=== PATIENT | male | born 1940 | race Asian ===

== ENCOUNTER 2016-05-20 12:30 | Outpatient (CLI) | payer MEDICARE, OTHER ==
[~2016-05-20] VITALS: Ht 157.5 cm; Wt 67.3 kg
[2016-05-20 13:57] VITALS: BP 139/70; PULSE 72; RESP 18; Ht 157.5 cm; Wt 67.3 kg
--- NOTE | 2016-05-20 16:15 | CONS ---
[facility] INITIAL OUTPATIENT CONSULTATION NOTE DATE OF CONSULTATION: 05/20/2016 PLACE OF SERVICE: [facility]. ASSESSMENT AND PLAN: A very pleasant and otherwise fairly healthy 76-year-old gentleman with comorbidities of hypertension and hyperlipidemia, as well as benign prostatic hypertrophy, presenting with left inguinal hernia. I have recommended surgical intervention in the form of laparoscopic and possible open herniorrhaphy, likely with mesh. I reviewed the operation in detail as well as the risks, benefits and alternatives, and obtained the patient's and family's consent to do the operation. I answered all the patient's and family's questions to the best of my ability and I believe that they understand and wish to proceed with the following plan. With above assessment, I recommend the followin. Preoperative history and physical. 2. Schedule for an elective laparoscopic, possible open left inguinal hernia repair with possible mesh. Thank you again for allowing us to participate in the care of this very pleasant gentleman and his wonderful family. If there are any questions, please feel free to call me at [phone]. TOTAL VISIT TIME: 45 minutes of which more than half was spent in [id number] discussion with the patient, discussions with his son, as well as coordination of care between multiple physicians and providers. UPDATED CLINICAL SUMMARY: A very pleasant 76-year-old gentleman who is otherwise fairly healthy, presenting with a few week history of left inguinal discomfort that appears to be an inguinal hernia. COMORBIDITIES: 1. Hypertension. 2. Hypercholesterolemia. 3. Benign prostatic hypertrophy. HISTORY OF THE PRESENT ILLNESS: The patient is a very pleasant 76-year-old gentleman with above-mentioned comorbidities whom we were kindly asked to consult regarding management of his left inguinal hernia. He reports 2 to 3- week history of discomfort in the left groin area associated with no nausea or vomiting or bowel obstruction symptoms. He is currently retired and does not do heavy lifting at work. He also does not have any difficulties with his bowel movements and no changes in his bowel or bladder habits. No changes in appetite or his weight. ALLERGIES: NO KNOWN DRUG ALLERGIES. HOME MEDICATIONS: Blood pressure and prostate medication and the patient did not have a list with him and his medical records did not indicate type of medications. SOCIAL HISTORY: The patient lives with his family. He has 4 children including 3 daughters and 1 son and 9 grandchildren. He does not report any smoking, drinking, or intravenous drug use. FAMILY HISTORY: There is no mention of major medical, surgical or oncologic problems in the family. REVIEW OF SYSTEMS: Other than the above-mentioned, there are no other pertinent positives or pertinent negatives in a complete 14-point review of systems. PHYSICAL EXAMINATION: GENERAL: The patient appears to be a very pleasant [place] gentleman from non- descent, appearing stated age or younger, sitting in a chair comfortably and in no acute distress. His BMI has not been listed, but is less than 24. He is wearing upper and lower dentures. VITAL SIGNS: Stable, and he is afebrile. HEENT: Normocephalic and atraumatic. Extraocular muscles and hearing are grossly intact bilaterally and symmetrically. Sclerae are nonicteric. Oral cavity is clear; oral mucosa appeared to be pink and moist. Dentition: fair. NECK: Supple. There is no lymphadenopathy or JVD. There is no submental, submandibular or supraclavicular lymphadenopathy. CHEST: Rises symmetrically with each breath; patient is breathing comfortably. There are no audible wheezes, rales or rhonchi on the gross exam. HEART: Pulse is regular and palpable on the right wrist. Capillary refill was normal. Carotid pulses are palpable bilaterally and symmetrically in the neck. EXTREMITIES: Lower extremities contain no pitting edema around the ankles bilaterally and symmetrically. ABDOMEN: Soft and benign. His left groin shows a bulge that is easily reducible, but it does increase in size with Valsalva maneuver. There appears to be an indirect hernia on the left side. The scrotum and genitals appeared to be normal. The right side appears to be normal. The skin overlying the left inguinal region appears to be pink, warm and there is no erythema. SKIN: Appears to be pink and feels warm to touch. NEUROLOGIC: Awake, alert, and follows commands appropriately. LABORATORY DATA: 02/24/2016, white blood cell count 5.1, platelets 206, albumin 4.3. Liver numbers are normal. Creatinine 0.9, triglycerides 211. IMAGING: None. Dictated By: DENICE ZARATE/SHAKIRA Conf#: [id number] DID#: [id number] CC: RED CURRY MD;*EndCC* MTDD
== END 2016-05-20 17:09 | disposition home or self-care (01) ==
LOC: HPC 12:30
PROVIDERS: ATTEND Transplant Surgery
DX: K40.90 Unilateral inguinal hernia, without obstruction or gangrene, not specified as recurrent (principal); N40.0 Benign prostatic hyperplasia without lower urinary tract symptoms; I10 Essential (primary) hypertension; E78.00 Pure hypercholesterolemia, unspecified
CPT/HCPCS: G0463

== ENCOUNTER 2016-06-04 05:36 | Day surgery (SDC) | payer MEDICARE, OTHER ==
[2016-06-04] VITALS (11 sets, daily range): BP systolic 145–164; BP diastolic 66–87; PULSE 65–88; RESP 10–18; Ht 161.3 cm; Wt 66.6 kg
[~2016-06-04] VITALS: Ht 161.3 cm; Wt 66.6 kg
[~2016-06-04 05:36] MED LIST: BUPIVACAINE 0.25%/EPI (SDV) 30 ML INJ INJ ONE; CEFAZOLIN 2 GM/50 ML (PMX) 50 ML IVPB ONE; D5W-0.45 NACL + KCL 20 MEQ 1,000 ML IV SCH
[2016-06-04] MEDS ORDERED: EPHEDrine SULFATE 50 MG/5 ML SYG ONE (07:00)
[2016-06-04] MEDS ORDERED: CEFAZOLIN 1 GM INJ ONE (07:00)
[2016-06-04] MEDS ORDERED: BUPIVACAINE 0.25%/EPI (SDV) 30 ML INJ ONE (07:01)
[2016-06-04] MEDS ORDERED: PROPOFOL 20 ML ONE (07:22)
[2016-06-04] MEDS ORDERED: LIDOCAINE 1% (MDV) 20 ML INJ ONE (07:22)
[2016-06-04] MEDS ORDERED: FENTAnyl 50 MCG/ML VIAL ONE (07:22)
[2016-06-04] MEDS ORDERED: ROCURONIUM 50 MG INJ ONE (07:22)
--- NOTE | 2016-06-04 07:37 | HPN ---
Date/Time of Note Date/Time of Note DATE: 06/04/16 TIME: 07:37 Interval H&P Admission Note Pt. seen H&P reviewed: No system changes Pt. seen H&P reviewed. No system changes (I attest that I have seen and examined the patient and reviewed the operation in detail, as well as its risks , benefits and alternatives of the operation). I attest that I have seen and examined the patient and reviewed in detail the operation, and its associated risks, benefits and alternative. I have answered all the patient's questions to the best of my ability and the patient wishes to proceed. Please refer to rest of electronic medical record for additional updates. DENICE KRISHNAN M.D. Jun 04, 2016 07:37
[2016-06-04] MEDS ORDERED: LACTATED RINGER'S 1,000 ML IV SCH (08:00)
[2016-06-04] MEDS ORDERED: ONDANSETRON 4 MG INJ ONE (08:08)
[2016-06-04] MEDS ORDERED: ROPIVACAINE 0.2% 20 ML VIAL ONE (08:08)
[2016-06-04] MEDS ORDERED: DEXAMETHASONE 4 MG/ML 1 ML INJ ONE (08:08)
[2016-06-04] MEDS ORDERED: FAMOTIDINE 20 MG INJ ONE (08:08)
[2016-06-04] MEDS ORDERED: ACETAMINOPHEN 1000MG/100ML IV 100 ML ONE (08:29)
[2016-06-04] MEDS ORDERED: GLYCOPYRROLATE 0.4 MG INJ ONE (09:18)
[2016-06-04] MEDS ORDERED: NEOSTIGMINE 3 MG/3 ML SYRINGE ONE (09:18)
--- NOTE | 2016-06-04 09:48 | OPR ---
Date/Time of Note Date/Time of Note DATE: 06/04/16 TIME: 09:47 Operative Report Operative\Procedure Findings [facility] INPATIENT OPERATIVE NOTE PLACE OF SERVICE: [facility] DATE OF SURGERY: 06/04/2016 PREOPERATIVE DIAGNOSIS: 1. Left inguinal hernia. 2. Hypertension. 3. Hypercholesterolemia. 4. Benign prostatic hypertrophy. POSTOPERATIVE DIAGNOSIS: 1. Left inguinal hernia (indirect). 2. Hypertension. 3. Hypercholesterolemia. 4. Benign prostatic hypertrophy. OPERATION: 1. Laparoscopic left inguinal hernia repair with mesh (10 cm x [address]) SURGEON: Denice Krishnan M.D. PLANT PATHOLOGIST: Brit ANESTHESIA: General endotracheal tube anesthesia ANESTHESIOLOGIST: Giuliano Raymundo M.D. BRIEF SUMMARY: An otherwise uncomplicated laparoscopic left inguinal hernia repair with mesh (10 cm x [address]) was performed with findings of indirect left inguinal hernia. UPDATED CLINICAL SUMMARY: A very pleasant 76-year-old gentleman who is otherwise fairly healthy, presenting with a few week history of left inguinal discomfort that appears to be an inguinal hernia. COMORBIDITIES: 1. Hypertension. 2. Hypercholesterolemia. 3. Benign prostatic hypertrophy. BRIEF HISTORY: The patient is a very pleasant 76-year-old gentleman who is otherwise fairly healthy, presenting with a few week history of left inguinal discomfort that appears to be an inguinal hernia. I met with the patient and family and counseled them regarding the possible options of treatment, and I strongly suggested a laparoscopic, possible open, left groin hernia repair, possible mesh, possible bilateral. We reviewed the operation in detail as well as the risks, benefits, alternatives, and expected outcomes of this operation. After careful consideration of all the risks, benefits, and alternatives, the patient and family appeared to understand those risks and wished to proceed with surgery. For a detailed report of my consultation with patient and family, please refer to my separate consultation note. STATEMENT OF THE INFORMED CONSENT: The patient and family appeared to understand the risks of the operation to include, but not be limited to risk of postoperative pain and scar tissue, possible infection or bleeding requiring other interventions such as opening the wound, placement of drainage catheters, or other operative interventions; possible injury to surrounding to structures including bowel, bladder, bile duct, or blood vessels, or solid organs such as liver, kidney, or pancreas requiring other interventions or procedures; possible infection of the mesh causing significant increase in morbidity and mortality and requiring multiple interventions including but not limited to, placement of drainage catheters, imaging studies, as well as operative interventions with possible removal of the mesh and recurrence of hernia requiring future repair; possible other source of sepsis such as urinary tract infections or pneumonias, or other sources of potentially life threatening problems such as deep venous thrombus formation causing pulmonary embolism, myocardial arrhythmias and infarctions, and even . After careful consideration of all their options, the patient and family appeared to understand and wished to proceed with surgery. DESCRIPTION OF PROCEDURE: After obtaining informed consent, the patient was brought into the operating room and was placed in a normal supine position, where successful general endotracheal tube anesthesia was performed. Intravenous access was already in place and intravenous antimicrobials had been appropriately chosen and dosed prior to the operation. The patient's abdominal skin was prepped and draped from the nipple line down to the level of the upper thighs including the groin and in the usual sterile fashion. We then called a surgical time-out where the patient's identification, date of , nature of the operation, allergies, presence of intravenous antimicrobials, presence of needed equipment, and any other concerns were reviewed and agreed upon by all members of the operating room team. We then started the operation by placing a 5 mm [employer] trocar into the peritoneal space through a right lower quadrant 5 mm skin incision and using direct entry technique visualizing all the layers of the abdominal wall as we entered. Upon entry to the peritoneal space, we did not notice any obvious evidence of injury to underlying structures. We insufflated the abdominal cavity to a maximum pressure of 15 mmHg and again noted no significant adhesions in the region and found presence of a left inguinal hernia as suggested by the preoperative evaluation. We placed a 12 mm trocar in the umbilical space as well as another 5 mm trocar in the right lower quadrant all under direct visualization and after injecting the sites with quarter percent Marcaine with epinephrine. With our instruments in place, we had excellent visualization and access to the pelvis. By positioning the patient in a Trendelenburg right side down position, the contents of the inguinal hernia spontaneously reduced and there was no issue with bowel ischemia or other major problems with adhesions. The bowel appeared to be viable. We carefully inspected the right side and there was no evidence of any hernia on that side. We then placed a transverse cut above the area of the hernia in the standard fashion on the peritoneum and took down the peritoneal covering from the left groin region until we were able to dissect the sac completely from the cord structures. After complete dissection of the sac from the cord structures, we ensured adequate hemostasis and then placed a 10 cm x 15 cm mesh (Ventralight ST) into the abdominal cavity and widely covered the area of the left hernia with mesh within the pocket. The mesh laid in the pocket nicely. We then secured the mesh onto the pubic tubercle and on the superior aspect and the most lateral aspect of the mesh using absorbable tacks. This was done under low insufflation. We again ensured adequate hemostasis and then covered the mesh with peritoneum using the peritoneal layer that we had taken down previously. After insuring adequate hemostasis, we removed all our equipment from the abdominal cavity including the pneumoperitoneum, closed the umbilical fascial defect using one [id number] 0 Vicryl suture on a UR 6 needle, washed the wounds with copious amounts normal saline, injected the initial entry site with quarter percent Marcaine with epinephrine, and then closed the skin using interrupted 4 Monocryl suture. Light dressing was then applied. At the end of the operation, both the sponge count and needle count were reportedly correct x2. The patient tolerated the procedure without any reported complications. ESTIMATED BLOOD LOSS: 10 mL BLOOD OR BLOOD PRODUCT TRANSFUSIONS: None to my knowledge. SPECIMENS: None COMPLICATIONS: None. DISPOSITION: Recovery area. Disclaimer: Inadvertent spelling and grammatical errors are likely due to EHR/ dictation software use and do not reflect on the quality of delivered patient care. Also, please note that the electronic time recorded on this node does not necessarily reflect the actual time of the visit. DENICE KRISHNAN M.D. Jun 04, 2016 09:48
[2016-06-04] MEDS ORDERED: DOCUSATE SODIUM 100 MG CAP PO PRN (10:00)
[2016-06-04] MEDS ORDERED: BISACODYL 10 MG SUPP PR PRN (10:00)
[2016-06-04] MEDS ORDERED: HYDROCODONE/APAP (5/325) TAB PO PRN ×2 (10:00)
[2016-06-04] MEDS ORDERED: MEPERIDINE 25 MG INJ IV PRN (10:00)
[2016-06-04] MEDS ORDERED: DIPHENHYDRAMINE 50 MG INJ IV PRN (10:00)
[2016-06-04] MEDS ORDERED: PROCHLORPERAZINE 10 MG INJ IV PRN (10:00)
[2016-06-04] MEDS ORDERED: HYDROmorphONE (0.2 MG/ML) 10ML SYG IV PRN ×2 (10:00)
== END 2016-06-04 12:16 | disposition home or self-care (01) ==
LOC: SDS 05:36 → EDSTATUS 07:30 → SDS 12:16
PROVIDERS: ATTEND Transplant Surgery
DX: K40.90 Unilateral inguinal hernia, without obstruction or gangrene, not specified as recurrent (principal); I10 Essential (primary) hypertension; E78.00 Pure hypercholesterolemia, unspecified; N40.0 Benign prostatic hyperplasia without lower urinary tract symptoms
CPT/HCPCS: 49650; C1781; J0131; J0690; J1100; J1170; J2405; J2710; J2795; J3010

== ENCOUNTER 2016-06-26 13:53 | Outpatient (CLI) | payer MEDICARE, OTHER ==
[~2016-06-26] VITALS: Ht 157.5 cm; Wt 69.1 kg
[2016-06-26 13:56] VITALS: BP 145/69; PULSE 70; RESP 18; Ht 157.5 cm; Wt 69.1 kg
[2016-06-26] MEDS ORDERED: TAMS-14 PO (14:02)
--- NOTE | 2016-06-26 14:10 | PN ---
Date/Time of Note Date/Time of Note DATE: 06/26/16 TIME: 14:06 Assessment/Plan Assessment/Plan Assessment/Plan [facility] Progress Note Date of Service: 06/26/16 Today's Impression & Plan: Overall doing well post op without major issues. No major wound problems. With above assessment, I've recommended the following for today: 1. F/u with PCP 2. F/u with us prn Thank you again for your great care of this very pleasant patient and wonderful family. If there are any questions, please feel free to call me at [phone]. TOTAL VISIT TIME: 20 minutes of which more than half was spent in [id number] discussion with the patient, possibly including family, as well as coordination of care between multiple physicians and providers. Disclaimer: Inadvertent spelling or grammatical errors are likely due to EHR/ dictation software use and do not reflect on the overall quality of patient care. Updated Clinical Summary: A very pleasant 76-year-old gentleman who is otherwise fairly healthy, presenting with a few week history of left inguinal discomfort that appears to be an inguinal hernia. S/p an otherwise uncomplicated laparoscopic left inguinal hernia repair with mesh (10 cm x [address]) was performed with findings of indirect left inguinal hernia on 06/08/16 at [facility] as an outpatient procedure. COMORBIDITIES: 1. Hypertension. 2. Hypercholesterolemia. 3. Benign prostatic hypertrophy. 4. S/p an otherwise uncomplicated laparoscopic left inguinal hernia repair with mesh (10 cm x [address]) was performed with findings of indirect left inguinal hernia on 06/08/16 at [facility] as an outpatient procedure. Subjective: No major events or complaints; no abd pain and under control with medications; no n/v/d; no sob or cp; + flatus; + BM and normal; + activity Objective: Vitals: See below Exam: GENERAL: On exam, the patient was sitting in a chair and appeared to be comfortable and in no acute distress. ABDOMEN: Soft, nontender and nondistended. Incisions are clean, dry and intact without any evidence of erythema, edema, discharge, or hernia. There are no peritoneal signs or guarding. SKIN: Skin appears to be pink and feels warm to touch. NEUROLOGIC: Patient is awake, alert, and follows commands appropriately. Exam/Review of Systems Vital Signs Vitals Vital Signs Date Time Temp Pulse Resp B/P Pulse Ox O2 Delivery O2 Flow Rate FiO2 06/26/16 13:56 97.9 70 18 145/69 96 Room Air DENICE KRISHNAN M.D. June 26, 2016 14:10
== END 2016-06-26 16:53 | disposition home or self-care (01) ==
LOC: HPC 13:53
PROVIDERS: ATTEND Transplant Surgery
DX: Z48.815 Encounter for surgical aftercare following surgery on the digestive system (principal); I10 Essential (primary) hypertension; E78.00 Pure hypercholesterolemia, unspecified; N40.0 Benign prostatic hyperplasia without lower urinary tract symptoms
CPT/HCPCS: G0463